=== PATIENT | male | born 1935 | race Caucasian/White ===

== ENCOUNTER 2016-10-12 06:52 | Day surgery (SDC) | payer MEDICARE, OTHER ==
[~2016-10-12 06:52] MED LIST: Lidocaine 1%/Sod Bicarbonate in NS 8.4% 1 ML Syringe PRN; Sodium Chloride 0.9% 10 ML Syringe FLUSH PRN
[2016-10-12] MEDS ORDERED: fentaNYL 100 MCG/2 ML SDV ONE (07:55)
[2016-10-12] MEDS ORDERED: Propofol 200 MG/20 ML SDV ONE ×3 (07:55→11:54)
[2016-10-12] MEDS ORDERED: Lidocaine 1% 0 ML ONE (07:56)
--- NOTE | 2016-10-12 07:58 | PCM.PREANE ---
<Luis Arce - Last Filed: 10/12/16 07:56> Preanesthetic Assessment - Procedure Proposed Procedure: Screening colonoscopy - Physical Assessment NPO Status Date: 10/11/16 NPO Status Time: 20:30 O2 Sat by Pulse Oximetry: 97 Respiratory Rate: 16 Vital Signs: Last Vital Signs Temp 36.6 C 10/12/16 10:00 Pulse 87 10/12/16 10:00 Resp 16 10/12/16 10:00 BP 96/62 10/12/16 10:00 Pulse Ox 96 10/12/16 10:00 Height: 1.7 m Weight: 80.739 kg ASA Class: 3 Mental Status: Alert & Oriented x3 - Lab Values: Laboratory Last Values POC Glucose 152 mg/dL (83-110) H 10/12/16 10:06 - Allergies Allergies/Adverse Reactions: Allergies Allergy/AdvReac Type Severity Reaction Status Date / Time monosodium glutamate Allergy Stomach Verified 10/11/16 16:28 Ache onion Allergy Stomach Verified 10/11/16 16:28 Upset cilantro Allergy Diarrhea Uncoded 10/11/16 16:28 - Anesthesia Plan Beta Tobi: Metoprolol - Acknowledgements Anesthesia Type Planned: MAC Pt an Appropriate Candidate for the Planned Anesthesia: Yes Alternatives and Risks of Anesthesia Discussed w Pt/Guardian: Yes Pt/Guardian Understands and Agrees with Anesthesia Plan: Yes PreAnesthesia Questionnaire HEENT History: Reports: Impaired Vision Cardiovascular History: Reports: CAD, High Cholesterol, Hypertension, Stents, Other (See Below) Other Cardiovascular History: carotid artery stenosis, bradycardia Respiratory History: Reports: Other (See Below) Other Respiratory History: lung nodule Gastrointestinal History: Reports: Colon Polyp, Diverticulosis, Other (See Below ) Other Gastrointestinal History: colitis, adenatomous colon polyps Genitourinary History: Reports: Other (See Below) Other Genitourinary History: renal mass, malignant kidney tumor [employer] History: Reports: None Musculoskeletal History: Reports: None Neurological History: Reports: None Psychiatric History: Reports: None Endocrine/Metabolic History: Reports: Diabetes, Type II, Other (See Below) Other Endocrine/Metabolic History: adrenal nodule Hematologic History: Reports: Other (See Below) Other Hematologic History: hypomagnesium Immunologic History: Reports: None Oncologic (Cancer) History: Reports: Renal Dermatologic History: Reports: None - Past Surgical History HEENT Surgical History: Reports: Cataract Surgery Cardiovascular Surgical History: Reports: Carotid Endarterectomy, Coronary Artery Stent Other Cardiovascular Surgeries/Procedures: L illiac artery occlusion, thromboendarterectomy GI Surgical History: Reports: Colonoscopy, Hernia Repair/Other Male Surgical History: Reports: Renal Calculus, Ureteral Stent, Other (See Below) Other Male Surgeries/Procedures: cystoscopy, lithotripsy, R radical nephrectomy Musculoskeletal Surgical History: Reports: Other (See Below) Other Musculoskeletal Surgeries/Procedures:: wrist ORIF - SUBSTANCE USE Smoking Status *Q: Current Every Day Smoker (03/07 ppd) Days Per Week of Alcohol Use: 0 Recreational Drug Use History: No - HOME MEDS Home Medications: Home Meds Aspirin [Halfprin] 81 mg PO DAILY 03/12/14 [History] Insulin Glarg,Human.Rec.Analog [Lantus Solostar] 24 units SQ BEDTIME 03/12/14 [ History] Acetaminophen [Tylenol] 650 mg PO DAILY 10/11/16 [History] Chlorthalidone [Chlorthalidone] 25 mg PO DAILY 10/11/16 [History] Linagliptin [Tradjenta] 5 mg PO DAILY 10/11/16 [History] Lisinopril 40 mg PO DAILY 10/11/16 [History] Metoprolol Tartrate 50 mg PO BID 10/11/16 [History] Multivitamin [Poly-Vitamin] 1 tab PO DAILY 10/11/16 [History] Rosuvastatin Calcium [Crestor] 40 mg PO DAILY 10/11/16 [History] amLODIPine Besylate [Amlodipine Besylate] 10 mg PO DAILY 10/11/16 [History] - CURRENT (IN HOUSE) MEDS Current Meds: Current Medications Lactated Ringer's (Ringers, Lactated) 1,000 mls @ 125 mls/hr IV ASDIRECTED ANDREA Stop: 10/12/16 23:00 Last Admin: 10/12/16 10:06 Dose: 125 mls/hr Lidocaine/Sodium Bicarbonate (Buffered Lidocaine 1% In Ns 8.4%) 0.25 ml .XX ONETIME PRN PRN Reason: Prior to IV Start Stop: 10/12/16 18:00 Last Admin: 10/12/16 10:06 Dose: 0.25 ml Sodium Chloride (Saline Flush) 10 ml FLUSH ASDIRECTED PRN PRN Reason: Keep Vein Open Stop: 10/12/16 18:00 Discontinued Medications Fentanyl (Sublimaze) Confirm Administered Dose 100 mcg .ROUTE .STK-MED ONE Stop: 10/12/16 07:56 Lidocaine HCl (Xylocaine-Mpf 1%) Confirm Administered Dose 4 mls @ as directed .ROUTE .STK-MED ONE Stop: 10/12/16 07:57 Lidocaine HCl (Xylocaine-Mpf 1%) Confirm Administered Dose 4 mls @ as directed .ROUTE .STK-MED ONE Stop: 10/12/16 10:47 Propofol (Diprivan 20 Ml) Confirm Administered Dose 200 mg .ROUTE .STK-MED ONE Stop: 10/12/16 07:56 Propofol (Diprivan 20 Ml) Confirm Administered Dose 200 mg .ROUTE .STK-MED ONE Stop: 10/12/16 10:47 <Mike Garcia W - Last Filed: 10/12/16 10:55> Preanesthetic Assessment - Anesthesia/Transfusion/Family Hx Type of Anesthesia Reaction: Excessive Somnolence (happend a couple times after surgery (especially right kidney removal)) Family History of Anesthesia Reaction: No Transfusion History: No Prior Transfusion(s) Additional History: right kidney cancer- removed 3 years ago - Review of Systems General: No Symptoms Pulmonary: Cough Cardiovascular: Other (IN 2000 with stent, HTN, CAD, hyperlipidemia, carotid stenosis) Gastrointestinal: Hematochezia Neurological: No Symptoms Other: Reports: Easy Bruising (asa- last taken 10-04-16), Diabetes - Physical Assessment ASA Class: 3 Airway Class: Mallampati = 3 Dentition: Reports: Missing Tooth/Teeth (poor dentition, only has 6 remaining teeth ) Thyro-Mental Finger Breadths: 3 Mouth Opening Finger Breadths: 3 Lungs: Clear to Auscultation, Normal Respiratory Effort Cardiovascular: Regular Rate, Regular Rhythm - Blood Blood Available: No Product(s) Available: None - Anesthesia Plan Pre-Op Medication Ordered: None Med Last Dose Date: 10/12/16 Med Last Dose Time: 10:30 PreAnesthesia Questionnaire - SUBSTANCE USE Smoking Status *Q: Current Every Day Smoker (03/07 ppd 65years) Second Hand Smoke Exposure: No
[2016-10-12] MEDS: Lactated Ringers 1,000 ML IV SCH ×2 (10:06→12:28)
[2016-10-12] MEDS ORDERED: Lidocaine 1% 4 ML ONE (10:46)
[2016-10-12] MEDS ORDERED: Ketorolac 30 MG/ML SDV IVPUSH SCH (11:30)
--- NOTE | 2016-10-12 11:51 | PCM.OPNOTE ---
- General Post-Op/Procedure Note Date of Surgery/Procedure: 10/12/16 Operative Procedure(s): Colonoscopy with cold forceps biopsy Findings: Generous ileocecal valve, colon polyp 0.5 cm, diverticulosis, internal and external hemorrhoids Pre Op Diagnosis: Hematochezia, Diverticulosis, Abnormal CT abdomen Post-Op Diagnosis: Generous ileocecal valve, colon polyp 0.5 cm, diverticulosis , internal and external hemorrhoids Anesthesia Technique: MAC Primary Surgeon: Peeewe Jordan EBL in mLs: 5 Complications: none Condition: Good Free Text/Narrative:: After patient gave verbal and written consent he was placed on bp and pulse ox monitoring, he was given iv sedation which he tolerated well. The olympus colonoscope was inserted per rectum and advanced to the cecum without difficulty. It ileocecal valve and appendiceal orfice were imaged documenting cecal intubation. The colonoscope was slowly withdrawn, the prep was moderate, liquid stool had to be aspirated to achieve mucosal views. The ileocecal valve was large and floppy and was biopsied x 2. There was a 5 mm transverse polyp noted and removed with cold forceps biopsy. THere was hemostasis. Moderate to severe diverticulosis was noted in the sigmoid. Scope was retroflexed in the rectum, details are above.
[2016-10-12] MEDS ORDERED: Phenylephrine 1% 10 MG/ML SDV ONE (11:54)
--- NOTE | 2016-10-12 12:02 | PCM48HPAN ---
Post Anesthesia Note - EVALUATION WITHIN 48HRS OF ANESTHETIC Vital Signs in Normal Range: Yes Patient Participated in Evaluation: Yes Respiratory Function Stable: Yes Airway Patent: Yes Cardiovascular Function Stable: Yes Hydration Status Stable: Yes Pain Control Satisfactory: Yes Nausea and Vomiting Control Satisfactory: Yes Mental Status Recovered: Yes
[2016-10-12] MEDS ORDERED: fentaNYL 100 MCG/2 ML SDV IVPUSH PRN (12:15)
[2016-10-12] MEDS ORDERED: HYDROmorphone 0.5 MG/0.5 ML Syringe IVPUSH PRN (12:15)
--- NOTE | 2016-10-12 12:28 | PCM48HPAN ---
Post Anesthesia Note - EVALUATION WITHIN 48HRS OF ANESTHETIC Vital Signs in Normal Range: Yes Patient Participated in Evaluation: Yes Respiratory Function Stable: Yes Airway Patent: Yes Cardiovascular Function Stable: Yes Hydration Status Stable: Yes Pain Control Satisfactory: Yes Nausea and Vomiting Control Satisfactory: Yes Mental Status Recovered: Yes - COMMENTS/OBSERVATIONS Free Text/Narrative:: Blood pressure returned to baseline with 500mL fluid bolus. Patient drinking a coke and very hungry. No apparent anesthesia related concerns.
[2016-10-12 12:45] VITALS: BP 96/62
== END 2016-10-12 12:35 | disposition home or self-care (01) ==
LOC: JD.SDS 06:52
PROVIDERS: ATTEND Family Medicine
DX: D12.4 Benign neoplasm of descending colon (principal); K57.30 Diverticulosis of large intestine without perforation or abscess without bleeding; I10 Essential (primary) hypertension; E11.9 Type 2 diabetes mellitus without complications; I65.29 Occlusion and stenosis of unspecified carotid artery; I25.10 Atherosclerotic heart disease of native coronary artery without angina pectoris; Z95.5 Presence of coronary angioplasty implant and graft; E83.42 Hypomagnesemia; E78.2 Mixed hyperlipidemia; Z88.8 Allergy status to other drugs, medicaments and biological substances; Z91.018 Allergy to other foods; Z79.82 Long term (current) use of aspirin; Z79.899 Other long term (current) drug therapy; Z79.4 Long term (current) use of insulin; Z98.890 Other specified postprocedural states; Z90.5 Acquired absence of kidney; F17.210 Nicotine dependence, cigarettes, uncomplicated
CPT/HCPCS: 45380; 82962; J2370; J7120; 00810; 88305; J2704; J3010

== ENCOUNTER 2017-03-31 22:20 | Emergency (ER) | payer MEDICARE, OTHER ==
[2017-03-31 22:27] VITALS: BP 145/89
[2017-03-31] MEDS ORDERED: LORazepam 2 MG/ML SDV IVPUSH ONE (22:40)
[2017-03-31] MEDS ORDERED: Metoclopramide 10 MG/2 ML SDV IVPUSH ONE (22:40)
--- NOTE | 2017-03-31 22:44 | EDM.PDOC ---
ED HPI GENERAL MEDICAL PROBLEM - General Chief Complaint: Neurological Problem Stated Complaint: POSS STROKE Time Seen by Provider: 03/31/17 22:25 Source of Information: Reports: Patient, Family (friend) History Limitations: Reports: No Limitations - History of Present Illness INITIAL COMMENTS - FREE TEXT/NARRATIVE: 81-year-old male attends the ED due to sudden onset of vertigo symptoms about 1800 hrs. last night. Patient states that every time he gets up to walk he is listing towards the left side. He came with concerns that he might of been suffering a stroke. He has no change in his speech. No change in his visual acuity. Denies any falls or recent closed head injuries. Dates he drove to the hospital without any problems. He is asymptomatic as long as he holds real still. Has not had vertigo problems in the past. He takes insulin for type 2 diabetes control. Takes insulin usually at at bedtime which she has not taken yet tonight. Takes between 14 and 16 units of insulin at bedtime. Blood sugar this morning was 105. No recent cough colds or sinus congestion. No recent changes to any of his medications. Did vomit once tonight because of the intensity of the vertigo. This is what helped precipitate coming to the ED. Onset: Today Onset Date: 03/31/17 Onset Time: 18:00 Duration: Hour(s): Location: Reports: Other (Feels off balance when he is walking listing towards the left side.) Quality: Reports: Other (Off balance when he tries to walk) Severity: Moderate Improves with: Reports: Rest (Symptoms: Weight at rest.) Worsens with: Reports: Movement Context: Denies: Activity (Of head or neck.), Exercise, Lifting, Sick Contact, Trauma, Other Associated Symptoms: Reports: Nausea/Vomiting (Did vomit once at home tonight due to the intensity of the vertigo.). Denies: No Other Symptoms, Confusion, Chest Pain, Cough, cough w sputum, Diaphoresis, Fever/Chills, Headaches, Loss of Appetite, Malaise, Rash, Seizure, Shortness of Breath, Syncope, Weakness Treatments RN PRIMARY CARE: Reports: Other (see below) (None.) - Related Data Allergies Allergy/AdvReac Type Severity Reaction Status Date / Time monosodium glutamate AdvReac Stomach Verified 10/12/16 11:34 Ache onion AdvReac Stomach Verified 10/12/16 11:34 Upset cilantro AdvReac Diarrhea Uncoded 10/12/16 11:34 Home Meds: Home Meds Aspirin [Halfprin] 81 mg PO DAILY 03/12/14 [History] Insulin Glarg,Human.Rec.Analog [Lantus Solostar] 16 units SQ BEDTIME 03/12/14 [ History] Acetaminophen [Tylenol] 650 mg PO Q4H PRN 10/11/16 [History] Chlorthalidone [Chlorthalidone] 25 mg PO DAILY 10/11/16 [History] Linagliptin [Tradjenta] 5 mg PO DAILY 10/11/16 [History] Lisinopril 40 mg PO DAILY 10/11/16 [History] Metoprolol Tartrate 50 mg PO BID 10/11/16 [History] Multivitamin [Poly-Vitamin] 1 tab PO DAILY 10/11/16 [History] Rosuvastatin Calcium [Crestor] 40 mg PO DAILY 10/11/16 [History] amLODIPine Besylate [Amlodipine Besylate] 10 mg PO DAILY 10/11/16 [History] Polyethylene Glycol 3350 [MiraLAX] 17 gram PO DAILY 03/31/17 [History] Meclizine [Antivert] 12.5 mg PO TID #15 tab 04/01/17 [Rx] Past Medical History HEENT History: Reports: Impaired Vision Cardiovascular History: Reports: CAD, High Cholesterol, Hypertension, Stents ( As one stent in place.), Other (See Below) Other Cardiovascular History: carotid artery stenosis, bradycardia Respiratory History: Reports: Other (See Below) Other Respiratory History: lung nodule Gastrointestinal History: Reports: Colon Polyp, Diverticulosis, Other (See Below ) Other Gastrointestinal History: colitis, adenatomous colon polyps Genitourinary History: Reports: Other (See Below) Other Genitourinary History: renal mass, malignant kidney tumor 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 Therefore the adrenal gland was also sacrificed. He believe this was done by [facility] [employer] in [place] about 3 years ago. Attends oncology every 6 months for review) Dermatologic History: Reports: None - Past Surgical History HEENT Surgical History: Reports: Cataract Surgery Cardiovascular Surgical History: Reports: Carotid Endarterectomy, Coronary Artery Stent Other Cardiovascular Surgeries/Procedures: L illiac artery occlusion, thromboendarterectomy GI Surgical History: Reports: Colonoscopy, Hernia Repair/Other Male Surgical History: Reports: Renal Calculus, Ureteral Stent, Other (See Below) Other Male Surgeries/Procedures: cystoscopy, lithotripsy, R radical nephrectomy Musculoskeletal Surgical History: Reports: Other (See Below) Other Musculoskeletal Surgeries/Procedures:: wrist ORIF Social & Family History - Tobacco Use Smoking Status *Q: Current Every Day Smoker (03/07 ppd 63years) Years of Tobacco use: 62 Packs/Tins Daily: 0.2 Second Hand Smoke Exposure: No - Alcohol Use Days Per Week of Alcohol Use: 0 - Recreational Drug Use Recreational Drug Use: No - Living Situation & Occupation Living situation: Reports: , Alone Occupation: Retired ED ROS GENERAL - Review of Systems Review Of Systems: See Below Constitutional: Denies: Fever, Chills, Malaise, Weakness, Fatigue, Decreased Appetite, Weight Loss HEENT: Reports: Glasses, Vertigo (Ordered about 1800 hrs. last night. Goes away when he rests.). Denies: Vision Change Respiratory: Denies: Shortness of Breath, Wheezing, Pleuritic Chest Pain, Cough , Sputum Cardiovascular: Reports: Blood Pressure Problem, Dyspnea on Exertion. Denies: Chest Pain, Claudication, Edema, Lightheadedness, Orthopnea (On medication for hypertension), Palpitations (Chronically) Endocrine: Reports: Other (Is a type II diabetic.) GI/Abdominal: Reports: Nausea, Vomiting (vomited once tonight due to the intensity of the vertigo.) : Reports: Frequency, Other (No nocturia usually 3 times nightly) Musculoskeletal: Reports: Neck Pain, Shoulder Pain, Back Pain, Joint Pain ( Sometimes knees and hips.) Skin: Reports: Bruising (Bruises quite easily.) Neurological: Reports: Dizziness, Difficulty Walking. Denies: Confusion, Headache (Vertigo go since 1800 hrs. tonight.), Numbness, Paresthesia, Pre- Existing Deficit, Seizure, Syncope, Tingling, Tremors, Trouble Speaking (Feels like he lists towards the left side when he tries to walk.), Weakness, Change in Speech, Gait Disturbance Psychiatric: Reports: No Symptoms Hematologic/Lymphatic: Reports: No Symptoms Immunologic: Reports: No Symptoms ED EXAM, NEURO - Physical Exam Exam: See Below Exam Limited By: No Limitations General Appearance: Alert, WD/WN, No Apparent Distress Eye Exam: Left Eye: Nystagmus (Sustained nystagmus on left lateral gaze.), Bilateral Eye: Normal Inspection Ears: Normal TMs Throat/Mouth: Normal Inspection, Normal Lips, Normal Oropharynx, Other Head Exam: Atraumatic, Normocephalic Neck: Normal Inspection (Uvula is in the midline.), Supple, Non-Tender. No: Carotid Bruit, Lymphadenopathy (L), Lymphadenopathy (R) Respiratory/Chest: No Respiratory Distress, Lungs Clear, Normal Breath Sounds, No Accessory Muscle Use Cardiovascular: Regular Rate, Rhythm, No Edema, No Gallop, No Rub GI/Abdominal: Normal Bowel Sounds, Soft, Non-Tender, No Organomegaly, No Abnormal Bruit, No Mass, Pelvis Stable, Other (Evidence of previous right nephrectomy and apparently removal of his adrenal gland on the right side.) Neurological: Alert, Normal Mood/Affect, Normal Dorsiflexion, CN II-XII Intact, Normal Gait, Normal Reflexes, Difficulty Walking (Ataxic gait--- listing to the left side.), Other (Did fine with rapid alternating movements.). No: Abnormal Finger to Nose DTR: 0: Achilles (R), Achilles (L), 1+: Patella (R), Patella (L), 2+: Bicep (R) , Bicep (L) Back Exam: Normal Inspection, Full Range of Motion. 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.) ST-T: Other (Diffuse early repolarization pattern.) QT: Prolonged (Mildly prolonged) EKG Interpretation Comments: Abnormal ECG Course - Vital Signs Last Recorded V/S: Last Vital Signs Temp 36.1 C 03/31/17 22:26 Pulse 68 03/31/17 22:26 Resp 17 03/31/17 22:26 BP 145/89 H 03/31/17 22:26 Pulse Ox 98 03/31/17 22:26 - Orders/Labs/Meds Orders: Active Orders 24 hr Category Date Time Status Blood Glucose Check, Bedside [RC] ONETIME Care 03/31/17 22:36 Active EKG Documentation Completion [RC] STAT Care 03/31/17 22:39 Active Head wo Cont [CT] Stat Exams 04/01/17 00:17 Taken Labs: Laboratory Tests 03/31/17 03/31/17 03/31/17 Range/Units 22:36 22:45 23:25 WBC 11.25 H (4.23-9.07) K/mm3 RBC 5.11 (4.63-6.08) M/mm3 Hgb 15.9 (13.7-17.5) gm/L Hct 47.7 (40.1-51.0) % MCV 93.3 H (79.0-92.2) fl MCH 31.1 (25.7-32.2) pg MCHC 33.3 (32.2-35.5) g/dl RDW Std Deviation 44.3 H (35.1-43.9) fL Plt Count 168 (163-337) K/mm3 MPV 10.6 (9.4-12.3) fl Neutrophils % (Manual) 70 H (40-60) % Band Neutrophils % 0 (0-10) % Lymphocytes % (Manual) 22 (20-40) % Atypical Lymphs % 0 % Monocytes % (Manual) 5 (2-10) % Eosinophils % (Manual) 3 (0.8-7.0) % Basophils % (Manual) 0 L (0.2-1.2) Platelet Estimate Adequate Plt Morphology Comment Normal RBC Morph Comment Normal Sodium 140 (136-145) mEq/L Potassium 4.0 (3.5-5.1) mEq/L Chloride 106 (98-107) mEq/L Carbon Dioxide 26 (21-32) mEq/L Anion Gap 12.0 (5-15) BUN 34 H (7-18) mg/dL Creatinine 1.7 H (0.7-1.3) mg/dL Est Cr Clr Drug Dosing 32.94 mL/min Estimated GFR (MDRD) 39 (>60) mL/min BUN/Creatinine Ratio 20.0 H (14-18) Glucose 221 H (83-115) mg/dL POC Glucose 200 H (83-110) mg/dL Calcium 9.1 (8.5-10.1) mg/dL Magnesium 1.7 L (1.8-2.4) mg/dl Total Bilirubin 0.3 (0.2-1.0) mg/dL AST 15 (15-37) U/L ALT 29 (16-63) U/L Alkaline Phosphatase 70 (46-116) U/L Troponin I 0.017 (0.00-0.056) ng/mL C-Reactive Protein < 0.2 (<1.0) mg/dL NT-Pro-B Natriuret Pep 325 (0-450) pg/mL Total Protein 6.6 (6.4-8.2) g/dl Albumin 3.2 L (3.4-5.0) g/dl Globulin 3.4 gm/dL Albumin/Globulin Ratio 0.9 L (1-2) Meds: Medications Discontinued Medications Generic Name Dose Route Start Last Admin Trade Name Freq PRN Reason Stop Dose Admin Sodium Chloride 1,000 mls @ 100 mls/hr 03/31/17 22:45 03/31/17 22:50 Normal Saline IV 100 mls/hr ASDIRECTED ANDREA Administration Lorazepam 0.5 mg 03/31/17 22:40 03/31/17 22:52 Ativan IVPUSH 03/31/17 22:41 0.5 mg ONETIME ONE Administration Meclizine HCl 25 mg 04/01/17 01:20 04/01/17 01:23 Antivert PO 04/01/17 01:21 25 mg ONETIME ONE Administration Metoclopramide HCl 7.5 mg 03/31/17 22:40 03/31/17 22:51 Reglan IVPUSH 03/31/17 22:41 7.5 mg ONETIME ONE Administration - Radiology Interpretation Free Text/Narrative:: 81-year-old male presents to the ED with acute onset of vertigo about 1800 hrs. last night. He appreciates that if he holds real still rest she does not have any symptoms. No recent falls or closed head injuries. Patient did start vomiting during the intensity of the vertigo about 10:00 this evening. His supper came back up. Denies any hematemesis. The patient patient states that when he walks he lists toward the left side. He has not ever had any positive vertigo in the past. He is a type II diabetic controlled with insulin. Blood sugar in the department is 200. He usually takes his insulin long-acting at bedtime usually 14-16 units. Blood pressure present is normal at 116/75 heart rate is 69 in sinus. Examination shows sustained nystagmus on left lateral gaze. The remainder of his neurological exam is normal particular finger to nose rapid alternate movements no pronator drift etc. Appears that he has a benign positional vertigo arising out of the left labyrinth. Plan IV normal saline at 100 mils per hour. Will give Reglan 7.5 mg IV and Ativan 0.5 mg IV to alleviate vertigo symptoms. Routine labs to be obtained as well as an ECG. - Re-Assessments/Exams Free Text/Narrative Re-Assessment/Exam: 04/01/17 00:01 patient did very poorly on trial of trying to walk. He is listing terribly to the left side. Is a feel quite as vertiginous but he is listing quite badly. Plan CT head will be done to rule out any obvious stroke although he may well of had a cerebellar infarct. CT head will be done. Chemistry is pending yet. 04/01/17 00:20 WBC is 11.25 with 70% neutrophils no bands. Hemoglobin is 15.9 with hematocrit of 47.7. Platelet count is 168,000. Glucose is 200 at the bedside. Chemistry is pending. Chemistry is now back. It is 1219 hrs. Sodium was 140 potassium 4.0 chloride 106 bicarbonate 26. And a gap is 12.0 BUNs 34. Creatinine is 1.7. GFR is 30 9H stage III chronic kidney disease. Glucose 221. Magnesium is slightly low at 1.7 calcium normal at 9.1. Liver function is normal. Troponin I is less than 0.017 C- reactive protein is less than 0.2. BNP is 325 slightly elevated. 04/01/17 00:49 CT head is been completed. 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 There is diffuse small vessel ischemic changes in both basal ganglia. There is no evidence of acute intracranial bleed or mass effect. No obvious ischemia is evident at this time. We'll get the patient up 1 more time to see if he can ambulate although I suspect that he is not going to be able to do so and will require admission to hospital due to vertigo as his risk of fall at home is very high. 04/01/17 00:50 3P pro-testing without holding onto them he did much better. He was able to bend over talk in the sheets on the bed and walk with very little listing to the left side. Vertigo much improved. He will therefore be discharged to home. Antivert 25 mg was given in the ED and then he's to start 12.5 mg tomorrow morning at 9:30 and take one tablet every 8 hours for 5 consecutive days. Follow-up in clinic in 6-7 days time if not completely back to normal. Departure - Departure Time of Disposition: :20 Disposition: Home, Self-Care 01 Condition: Fair Clinical Impression: Vertigo - Discharge Information Prescriptions: Meclizine [Antivert] 12.5 mg PO TID #15 tab Instructions: Vertigo, [id number] Referrals: Mikaela Kwon, NURSING SERVICE ADMINISTRATOR [Primary Care Provider] - Forms: ED Department Discharge Additional Instructions: Evaluation in the emergency department tonight in regards to acute onset of loss of balance where your listing quite badly to the left side. Examination reveals evidence of malfunction of the vestibular gland or balance mechanism in your right ear. The cause of this is unclear but it is usually mechanical due to the way this organ works. All the lab work and CT of the head and brain were normal. No sign of stroke. Improved with medication but not completely back to normal. Suggest use of Antivert 12.5 mg every 8 hours for the next 5 days to bring vertigo under control. 85% of patients are better within 5 days more or less from tossing and turning in bed and improving function of the labyrinth. First tablet of Antivert was given in the ED the next tablet would be due at approximate 9:30 this morning. then 1 every 8 hours or so for the next 5 days. If still symptomatic or offkilter in your balance after 6 days usually need to follow-up with your personal doctor. Return to the ED sooner if condition worsens in any way. - My Orders Last 24 Hours: My Active Orders 03/31/17 22:36 Blood Glucose Check, Bedside [RC] ONETIME 03/31/17 22:39 EKG Documentation Completion [RC] STAT 04/01/17 00:17 Head wo Cont [CT] Stat - Assessment/Plan Last 24 Hours: My Active Orders 03/31/17 22:36 Blood Glucose Check, Bedside [RC] ONETIME 03/31/17 22:39 EKG Documentation Completion [RC] STAT 04/01/17 00:17 Head wo Cont [CT] Stat
[2017-03-31] MEDS ORDERED: Sodium Chloride 0.9% 1,000 ML IV SCH (22:45)
[2017-04-01] MEDS ORDERED: Meclizine 12.5 MG Tab PO ONE (01:20)
--- NOTE | 2017-04-01 07:54 | CT ---
Head CT Technique: Multiple axial sections through the brain were obtained. Intravenous contrast was not utilized. Comparison: No prior intracranial imaging. Findings: Ventricles along with basal cisterns and sulci over the convexities are mildly prominent. Atherosclerotic calcification is seen within the vertebral vessels and within the carotid siphon. Diminished density is identified within the periventricular and subcortical white matter which is compatible with small vessel ischemic demyelination change. No other abnormal parenchymal densities are seen. No evidence of intracranial hemorrhage. No midline shift or mass effect is seen. Bone window settings were reviewed which show a nodular soft tissue finding within the inferior left maxillary sinus measuring about 2.9 cm which is felt compatible with retention cyst. Mild mucosal thickening is scattered within the ethmoid sinuses. No acute calvarial abnormality is identified. Impression: 1. Sinus findings felt to represent mild chronic sinusitis. 2. Senescent change as described above. 3. No acute intracranial abnormality is identified. Diagnostic code #2 I agree with preliminary report issued by [facility] ([facility] preliminary report dictated on 04/01/17, 1:42 AM Central Time)
== END 2017-04-01 01:30 | disposition home or self-care (01) ==
LOC: JD.ED 22:20
DX: R42 Dizziness and giddiness (principal); E78.00 Pure hypercholesterolemia, unspecified; I10 Essential (primary) hypertension; E11.9 Type 2 diabetes mellitus without complications; F17.210 Nicotine dependence, cigarettes, uncomplicated; Z88.8 Allergy status to other drugs, medicaments and biological substances; Z79.82 Long term (current) use of aspirin; Z79.4 Long term (current) use of insulin; Z79.899 Other long term (current) drug therapy
CPT/HCPCS: 36415; 70450; 80053; 82962; 83735; 83880; 84484; 85025; 86140; 93005; 96361; 96374; 96375; 99285; A9270; J2060; J2765; J7040; 93010; 99284

== ENCOUNTER 2019-11-09 02:37 | Emergency (ER) | payer MEDICARE, OTHER ==
[2019-11-09] MEDS ORDERED: Aspirin 81 MG Tab.Chew PO STA (03:10)
--- NOTE | 2019-11-09 03:15 | EDM.PDOC ---
ED HPI GENERAL MEDICAL PROBLEM - General Chief Complaint: Chest Pain Stated Complaint: CHEST PAIN Time Seen by Provider: 11/09/19 02:49 Source of Information: Reports: Patient History Limitations: Reports: No Limitations - History of Present Illness INITIAL COMMENTS - FREE TEXT/NARRATIVE: Mr. Ahmadi is a very pleasant 84-year-old gentleman with a past medical history significant for coronary artery disease, status post an MD in 2000, with a subsequent single coronary artery stent, a committed smoker, who now presents to the ED with a complaint of chest pain. He states that he began belching around 01:00 this morning, while watching television. His left hand then became numb around 01:15, and before long, his entire left upper extremity felt numb. He then developed gradual-onset chest pain, felt just to the left of his sternum, and left parascapular pain, around 01:30. He is unable to describe the character of the pain, however, he states that it is a pain, not a discomfort. It is not modifiable with position or deep breaths. He is unsure if he has associated dyspnea, although he states that he does feel a little bit clammy. No associated nausea or sense of impending doom. The patient states that his current symptoms have improved slightly since their onset. He states that his symptoms are virtually identical to when he suffered an MD in 2000. The patient states that he took a single Tylenol prior to coming to the ED, however, while he is prescribed 1 baby aspirin per day, he did not take any aspirin after the onset of his symptoms. Here in the ED, the patient's initial BP was found to be elevated at 223/94, however, it started to come down immediately, without treatment. He is otherwise hemodynamically stable, afebrile, saturating 95% on room air. Other than today's chest pain, the patient denies having a recent fever, chills, sore throat, ear pain, nasal or sinus congestion, cough, dyspnea, palpitations, nausea, vomiting, constipation, diarrhea, abdominal pain, urinary symptoms, recent weight gain or weight loss, recent bloody bowel movements or black bowel movements, recent joint aches, headaches, or rashes. The patient's PCP is Dr. Kiana Qiu. The patient's Cardiovascular Surgeon is Dr. Enrique Ge. His Oncologist is Dr. Ally Atkins. - Related Data Allergies Allergy/AdvReac Type Severity Reaction Status Date / Time monosodium glutamate AdvReac Stomach Verified 10/12/16 11:34 Ache onion AdvReac Stomach Verified 10/12/16 11:34 Upset cilantro AdvReac Diarrhea Uncoded 10/12/16 11:34 Home Meds: Home Meds Aspirin [Halfprin] 81 mg PO DAILY 03/12/14 [History] Insulin Glarg,Human.Rec.Analog [Lantus Solostar] 16 units SQ BEDTIME 03/12/14 [History] Acetaminophen [Tylenol] 650 mg PO Q4H PRN 10/11/16 [History] Chlorthalidone 25 mg PO DAILY 10/11/16 [History] Linagliptin [Tradjenta] 5 mg PO DAILY 10/11/16 [History] Lisinopril 40 mg PO DAILY 10/11/16 [History] Metoprolol Tartrate 50 mg PO BID 10/11/16 [History] Multivitamin [Poly-Vitamin] 1 tab PO DAILY 10/11/16 [History] Rosuvastatin Calcium [Crestor] 40 mg PO DAILY 10/11/16 [History] amLODIPine Besylate [Amlodipine Besylate] 10 mg PO DAILY 10/11/16 [History] polyethylene glycoL 3350 [MiraLAX] 17 gram PO DAILY 03/31/17 [History] Meclizine [Antivert] 12.5 mg PO TID #15 tab 04/01/17 [Rx] Past Medical History HEENT History: Reports: Impaired Vision Cardiovascular History: Reports: CAD, High Cholesterol, Hypertension, MD (2000), PVD (Carotid artery atherosclerosis, left iliac artery atherosclerosis) Gastrointestinal History: Reports: Colon Polyp, Diverticulosis Genitourinary History: Reports: Renal Calculus Endocrine/Metabolic History: Reports: Diabetes, Type II, Obesity/BMI 30+ Oncologic (Cancer) History: Reports: Renal (right, with extension into the right adrenal gland, s/p right radical nephrectomy) - Past Surgical History HEENT Surgical History: Reports: Cataract Surgery Cardiovascular Surgical History: Reports: Carotid Endarterectomy (bilateral), Coronary Artery Stent (x 1, 2000), Vascular Surgery (Left iliac artery thrombectomy) GI Surgical History: Reports: Colonoscopy (x several), Hernia, Inguinal (left) Male Surgical History: Reports: Lithotripsy ([facility]) Musculoskeletal Surgical History: Reports: ORIF (right wrist) Oncologic Surgical History: Reports: Other (See Below) (Right nephrectomy + adrenectomy 2015) Social & Family History - Family History Family Medical History: Noncontributory - Tobacco Use Smoking Status *Q: Current Every Day Smoker Years of Tobacco use: 70 Packs/Tins Daily: 0.5 Packs/Tins Daily Comment: Down from 1 ppd - Caffeine Use Caffeine Use: Reports: Soda, Tea - Alcohol Use Alcohol Use History: No - Recreational Drug Use Recreational Drug Use: No - Living Situation & Occupation Living situation: Reports: , Alone Occupation: Retired ED ROS GENERAL - Review of Systems Review Of Systems: Comprehensive ROS is negative, except as noted in HPI. ED EXAM, GENERAL - Physical Exam Exam: See Below Exam Limited By: No Limitations General Appearance: Alert, WD/WN, No Apparent Distress Eye Exam: Bilateral Eye: EOMI, Normal Inspection Ears: Normal External Exam, Hearing Grossly Normal Nose: Normal Inspection Throat/Mouth: Normal Inspection, Normal Lips, Normal Voice, No Airway Compromise Head: Atraumatic, Normocephalic Neck: Normal Inspection, Full Range of Motion Respiratory/Chest: No Respiratory Distress, Lungs Clear, Normal Breath Sounds, No Accessory Muscle Use, Chest Non-Tender Cardiovascular: Normal Peripheral Pulses, Regular Rate, Rhythm, No Gallop, No JVD, No Murmur, No Rub Peripheral Pulses: 3+: Radial (L), Radial (R) GI/Abdominal: Normal Bowel Sounds, Soft, Non-Tender, No Organomegaly, No Distention, No Abnormal Bruit, No Mass (Male) Exam: Deferred Rectal (Males) Exam: Deferred Back Exam: Normal Inspection, Full Range of Motion, NT Extremities: Normal Range of Motion, Normal Capillary Refill, Other (1-2+ pretibial edema bilaterally) Neurological: Alert, Oriented, Normal Cognition, No Motor/Sensory Deficits Psychiatric: Normal Affect Skin Exam: Warm, Dry, Intact, Normal Color, No Rash EKG INTERPRETATION EKG Date: 11/09/19 Time: 02:42 Rhythm: NSR Rate (Beats/Min): 91 P-Wave: Present QRS: LBBB (incomplete) QT: Normal Comparison: Change From Previous EKG (Incomplete LBBB not present 03/31/2017) Course - Vital Signs Last Recorded V/S: Last Vital Signs Temp 36.1 C 11/09/19 02:42 Pulse 83 11/09/19 06:05 Resp 18 11/09/19 02:42 BP 107/67 11/09/19 06:05 Pulse Ox 95 11/09/19 02:42 - Orders/Labs/Meds Orders: Active Orders 24 hr Category Date Time Status EKG Documentation Completion [RC] STAT Care 11/09/19 02:51 Active Chest 1V Frontal [CR] Stat Exams 11/09/19 02:51 Taken Heparin Sodium/D5W [Heparin 25,000 Units in D5W 500 ML] Med 11/09/19 06:00 Active 25,000 units in 500 ml IV TITRATE Metoprolol Tartrate [Lopressor] Med 11/09/19 06:54 Once 5 mg IVPUSH ONETIME ONE Medication Orders Heparin Sodium/Dextrose (Heparin 25,000 Units In D5w 500 Ml) 25,000 units in 500 mls @ 18.5 mls/hr IV TITRATE ANDREA; Protocol Last Admin: 11/09/19 06:08 Dose: 925 units/hr, 18.5 mls/hr Documented by: JEAN PAUL Cosigned by: TEQUILA Labs: Laboratory Tests 11/09/19 11/09/19 11/09/19 Range/Units 02:45 02:45 02:45 WBC 12.19 H (4.23-9.07) K/mm3 RBC 4.96 (4.63-6.08) M/mm3 Hgb 15.9 (13.7-17.5) gm/dl Hct 46.7 (40.1-51.0) % MCV 94.2 H (79.0-92.2) fl MCH 32.1 (25.7-32.2) pg MCHC 34.0 (32.2-35.5) g/dl RDW Std Deviation 44.7 H (35.1-43.9) fL Plt Count 205 (163-337) K/mm3 MPV 11.2 (9.4-12.3) fl Neutrophils % (Manual) 71 H (40-60) % Band Neutrophils % 0 (0-10) % Lymphocytes % (Manual) 21 (20-40) % Atypical Lymphs % 0 % Monocytes % (Manual) 4 (2-10) % Eosinophils % (Manual) 4 (0.8-7.0) % Basophils % (Manual) 0 L (0.2-1.2) Platelet Estimate Adequate Plt Morphology Comment Normal RBC Morph Comment Normal D-Dimer, Quantitative 1.84 H (0.19-0.50) mg/L Sodium 137 (136-145) mEq/L Potassium 4.1 (3.5-5.1) mEq/L Chloride 100 (98-107) mEq/L Carbon Dioxide 23 (21-32) mEq/L Anion Gap 18.1 H (5-15) BUN 35 H (7-18) mg/dL Creatinine 1.7 H (0.7-1.3) mg/dL Est Cr Clr Drug Dosing 30.23 mL/min Estimated GFR (MDRD) 39 (>60) mL/min BUN/Creatinine Ratio 20.6 H (14-18) Glucose 215 H (83-115) mg/dL Calcium 9.7 (8.5-10.1) mg/dL Magnesium (1.8-2.4) mg/dl Total Bilirubin 0.5 (0.2-1.0) mg/dL AST 17 (15-37) U/L ALT 41 (16-63) U/L Alkaline Phosphatase 82 (46-116) U/L Troponin I 0.058 H* (0.00-0.056) ng/mL NT-Pro-B Natriuret Pep (0-450) pg/mL Total Protein 7.4 (6.4-8.2) g/dl Albumin 3.8 (3.4-5.0) g/dl Globulin 3.6 gm/dL Albumin/Globulin Ratio 1.1 (1-2) COVID-19 (BUD) (NEGATIVE) 11/09/19 11/09/19 11/09/19 Range/Units 02:45 02:45 05:16 WBC (4.23-9.07) K/mm3 RBC (4.63-6.08) M/mm3 Hgb (13.7-17.5) gm/dl Hct (40.1-51.0) % MCV (79.0-92.2) fl MCH (25.7-32.2) pg MCHC (32.2-35.5) g/dl RDW Std Deviation (35.1-43.9) fL Plt Count (163-337) K/mm3 MPV (9.4-12.3) fl Neutrophils % (Manual) (40-60) % Band Neutrophils % (0-10) % Lymphocytes % (Manual) (20-40) % Atypical Lymphs % % Monocytes % (Manual) (2-10) % Eosinophils % (Manual) (0.8-7.0) % Basophils % (Manual) (0.2-1.2) Platelet Estimate Plt Morphology Comment RBC Morph Comment D-Dimer, Quantitative (0.19-0.50) mg/L Sodium (136-145) mEq/L Potassium (3.5-5.1) mEq/L Chloride (98-107) mEq/L Carbon Dioxide (21-32) mEq/L Anion Gap (5-15) BUN (7-18) mg/dL Creatinine (0.7-1.3) mg/dL Est Cr Clr Drug Dosing mL/min Estimated GFR (MDRD) (>60) mL/min BUN/Creatinine Ratio (14-18) Glucose (83-115) mg/dL Calcium (8.5-10.1) mg/dL Magnesium 1.9 (1.8-2.4) mg/dl Total Bilirubin (0.2-1.0) mg/dL AST (15-37) U/L ALT (16-63) U/L Alkaline Phosphatase (46-116) U/L Troponin I 1.686 H* (0.00-0.056) ng/mL NT-Pro-B Natriuret Pep 232 (0-450) pg/mL Total Protein (6.4-8.2) g/dl Albumin (3.4-5.0) g/dl Globulin gm/dL Albumin/Globulin Ratio (1-2) COVID-19 (BUD) (NEGATIVE) 11/09/19 Range/Units 06:22 WBC (4.23-9.07) K/mm3 RBC (4.63-6.08) M/mm3 Hgb (13.7-17.5) gm/dl Hct (40.1-51.0) % MCV (79.0-92.2) fl MCH (25.7-32.2) pg MCHC (32.2-35.5) g/dl RDW Std Deviation (35.1-43.9) fL Plt Count (163-337) K/mm3 MPV (9.4-12.3) fl Neutrophils % (Manual) (40-60) % Band Neutrophils % (0-10) % Lymphocytes % (Manual) (20-40) % Atypical Lymphs % % Monocytes % (Manual) (2-10) % Eosinophils % (Manual) (0.8-7.0) % Basophils % (Manual) (0.2-1.2) Platelet Estimate Plt Morphology Comment RBC Morph Comment D-Dimer, Quantitative (0.19-0.50) mg/L Sodium (136-145) mEq/L Potassium (3.5-5.1) mEq/L Chloride (98-107) mEq/L Carbon Dioxide (21-32) mEq/L Anion Gap (5-15) BUN (7-18) mg/dL Creatinine (0.7-1.3) mg/dL Est Cr Clr Drug Dosing mL/min Estimated GFR (MDRD) (>60) mL/min BUN/Creatinine Ratio (14-18) Glucose (83-115) mg/dL Calcium (8.5-10.1) mg/dL Magnesium (1.8-2.4) mg/dl Total Bilirubin (0.2-1.0) mg/dL AST (15-37) U/L ALT (16-63) U/L Alkaline Phosphatase (46-116) U/L Troponin I (0.00-0.056) ng/mL NT-Pro-B Natriuret Pep (0-450) pg/mL Total Protein (6.4-8.2) g/dl Albumin (3.4-5.0) g/dl Globulin gm/dL Albumin/Globulin Ratio (1-2) COVID-19 (BUD) Negative (NEGATIVE) Meds: Medications Generic Name Dose Route Start Last Admin Trade Name Freq PRN Reason Stop Dose Admin Heparin Sodium/Dextrose 25,000 units in 500 mls @ 18.5 mls/hr 11/09/19 06:00 11/09/19 06:08 Heparin 25,000 Units In D5w 500 Ml IV 925 units/hr TITRATE ANDREA 18.5 mls/hr Administration Protocol 925 UNITS/HR Discontinued Medications Generic Name Dose Route Start Last Admin Trade Name Freq PRN Reason Stop Dose Admin Aspirin 324 mg 11/09/19 03:10 11/09/19 03:18 Aspirin PO 11/09/19 03:11 324 mg ONETIME STA Administration Heparin Sodium (Porcine) 4,000 units 11/09/19 05:53 11/09/19 06:13 Heparin Sodium IVPUSH 11/09/19 05:54 4,000 units .BOLUS STA Administration Hydromorphone HCl 0.5 mg 11/09/19 03:44 11/09/19 03:50 Dilaudid IVPUSH 11/09/19 03:45 0.5 mg ONETIME ONE Administration Metoprolol Tartrate 5 mg 11/09/19 05:53 11/09/19 06:05 Lopressor IVPUSH 11/09/19 05:54 5 mg ONETIME ONE Administration Ondansetron HCl 4 mg 11/09/19 03:44 11/09/19 03:50 Zofran IVPUSH 11/09/19 03:45 4 mg ONETIME ONE Administration - Re-Assessments/Exams Free Text/Narrative Re-Assessment/Exam: 11/09/19 03:10 As above, the patient developed left hand numbness that eventually involved his entire left upper extremity around 01:00 this morning, followed by [id number] chest pain and left parascapular pain, gradual onset, around 01:30, while watching television. Associated mild clamminess and possible dyspnea, although no associated nausea or sense of impending doom, however, the most concerning feature of his history is that his symptoms are the same as when he suffered an MD in 2000. His ECG, obtained at triage, shows an incomplete left bundle branch block. I have ordered a work-up that includes blood work and a portable chest x-ray, and in the meantime, the patient will be given 324 mg of chewable aspirin. 11/09/19 03:25 Portable chest radiograph reviewed. The cardiac silhouette is within normal limits. Aortosclerosis noted. No pulmonary vascular congestion. No pleural effusions seen on this AP view. No focal infiltrate. No pneumothorax. Formal read per the Radiologist pending. 11/09/19 03:47 The patient's CBC is remarkable for a WBC count mildly elevated at 12.19, but with 0% bandemia. The remainder of his CBC is unremarkable. His CMP is remarkable for an anion gap mildly elevated at 18.1, but with a bicarbonate normal at 23. His BUN/Cr are elevated at 35/1.7, and his blood glucose is elevated at 215, with the remainder of his CMP being unremarkable. His magnesium level is within normal limits at 1.9. His troponin is slightly elevated at 0.058. His BNP is within normal limits at 232. His D-dimer is elevated at one 1.84. I believe the patient's D-dimer is elevated due to his renal insufficiency, as his presentation is not consistent with a pulmonary embolus. I am surprised that his troponin is not higher than it is, given his renal insufficiency. I have ordered a repeat troponin to be obtained 4 hours after the onset of his left upper extremity numbness, at 05:15. 11/09/19 05:51 The patient's repeat troponin is elevated at 1.68. This indicates that the patient suffered an acute MD. I will order IV Lopressor, a heparin bolus, and a heparin drip. I will contact [facility]. 11/09/19 05:57 Case discussed with Genaro at [facility], at 05:52. She needed to check to see if there were any beds available. She called me back at 05:57. Unfortunately, no beds are available. 11/09/19 06:19 [facility] contacted at 05:59, however, they were busy, and the message indicated I should call the ED. Case discussed with Dr. Cotter, Emergency Physician at [facility], at 06:00. He recommended that I first go through [facility]. Case then discussed with Lakesha at [facility] at 06:03. Case then discussed with Dr. Srikanth Bhandari, [employer] at [facility], at 06:07. He agreed that the patient is having a STEMI, however, he advised against thrombolytics due to the patient's age. He recommended that we transfer the patient to the ED, and from there, he can go to the [facility]. During my wait, I ordered 5 mg of IV Lopressor and a heparin bolus + drip. Dr. Bhandari did not recommend any other medications at this time. I also ordered a rapid test for the SARS-CoV-2 virus. Case then discussed with Dr. Beaulieu, Emergency Physician at [facility], at 06:13. She accepted the patient for transfer to their ED. She suggested that if the patient still has chest pain, that we consider starting a nitroglycerin drip, however, the patient's SBP is in the 100s, so we may not have that much room. She requested that we fax the ECG. Due to bad weather, the patient will not be able to go by air. He will have to go by ground ambulance. The portable chest x-ray image was pushed to [facility]. I reevaluated the patient. He states that ever since he received the IV Dilau did, his chest pain resolved and has not returned. I am therefore not going to start a nitroglycerin drip. 11/09/19 06:55 The test for the SARS-CoV-2 virus has returned negative. The patient's current BP is 141/66, with a HR of 87. The patient will be given a second dose of Lopressor 5 mg IVP. EMS is here to take the patient now. Departure - Departure Time of Disposition: 06:30 Disposition: DC/Tfer to Acute Hospital 02 Reason for Transfer *Q: Primary PCI Indicated Condition: Fair Clinical Impression: STEMI (ST elevation myocardial infarction) Referrals: Kiana Qiu MD [Ordering Only Provider] - Ally Atkins MD [Ordering Only Provider] - Forms: ED Department Discharge Sepsis Event Note (ED) - Evaluation Sepsis Screening Result: No Definite Risk - Focused Exam Vital Signs: Vital Signs Temp Pulse Pulse Resp BP BP Pulse Ox 11/09/19 06:05 83 107/67 11/09/19 02:42 36.1 C 92 18 223/94 H 95 - My Orders Last 24 Hours: My Active Orders 11/09/19 02:51 EKG Documentation Completion [RC] STAT Chest 1V Frontal [CR] Stat 11/09/19 06:00 Heparin Sodium/D5W [Heparin 25,000 Units in D5W 500 ML] 25,000 units in 500 ml IV TITRATE 11/09/19 06:54 Metoprolol Tartrate [Lopressor] 5 mg IVPUSH ONETIME ONE - Assessment/Plan Last 24 Hours: My Active Orders 11/09/19 02:51 EKG Documentation Completion [RC] STAT Chest 1V Frontal [CR] Stat 11/09/19 06:00 Heparin Sodium/D5W [Heparin 25,000 Units in D5W 500 ML] 25,000 units in 500 ml IV TITRATE 11/09/19 06:54 Metoprolol Tartrate [Lopressor] 5 mg IVPUSH ONETIME ONE
[2019-11-09] MEDS ORDERED: HYDROmorphone 0.5 MG/0.5 ML Syringe IVPUSH ONE (03:44)
[2019-11-09] MEDS ORDERED: Ondansetron 4 MG/2 ML SDV IVPUSH ONE (03:44)
[2019-11-09] MEDS ORDERED: Metoprolol Tartrate 5 MG/5 ML SDV IVPUSH ONE ×2 (05:53→06:54)
[2019-11-09] MEDS ORDERED: Heparin Sodium 5,000 Units/ML Vial IVPUSH STA (05:53)
[2019-11-09] MEDS ORDERED: Heparin Sodium/D5W 25,000 UNITS/500 ML BAG IV SCH (06:00)
[2019-11-09] MEDS ORDERED: Metoprolol Tartrate 5 MG/5 ML SDV ONE (06:56)
[2019-11-09 07:07] VITALS: BP 141/66; PULSE 82
--- NOTE | 2019-11-09 11:25 | CR ---
Chest: Portable view of the chest was obtained. Comparison: Prior chest x-ray of 03/30/14. Heart size and mediastinum are within normal limits. Lungs are clear with no acute parenchymal change. Bony structures are grossly intact. Impression: 1. Nothing acute is appreciated on portable chest x-ray. Diagnostic code #1 This report was dictated in MDT
== END 2019-11-09 07:10 ==
LOC: JD.ED 02:37
DX: I21.3 ST elevation (STEMI) myocardial infarction of unspecified site (principal); I25.10 Atherosclerotic heart disease of native coronary artery without angina pectoris; I25.2 Old myocardial infarction; E78.00 Pure hypercholesterolemia, unspecified; I10 Essential (primary) hypertension; E11.9 Type 2 diabetes mellitus without complications; E66.9 Obesity, unspecified; F17.210 Nicotine dependence, cigarettes, uncomplicated; Z20.828 Contact with and (suspected) exposure to other viral communicable diseases; Z95.5 Presence of coronary angioplasty implant and graft; Z91.018 Allergy to other foods; Z88.8 Allergy status to other drugs, medicaments and biological substances; Z79.82 Long term (current) use of aspirin; Z79.4 Long term (current) use of insulin; Z79.899 Other long term (current) drug therapy
CPT/HCPCS: 36415; 71045; 80053; 83735; 83880; 84484; 85007; 85027; 85379; 93005; 96365; 96375; 96376; 99285; A9270; J1170; J1644; J2405; J3490; U0002; 93010